=== PATIENT | female | born 1995 | race Caucasian/White ===

== ENCOUNTER 2016-10-10 00:21 | Emergency (ER) | payer SELFPAY ==
[2016-10-10 03:06] VITALS: BP 121/78
== END 2016-10-10 03:07 | disposition home or self-care (01) ==
LOC: EME 00:21
DX: S00.83XA Contusion of other part of head, initial encounter (principal); Y04.0XXA Assault by unarmed brawl or fight, initial encounter; Y92.29 Other specified public building as the place of occurrence of the external cause
CPT/HCPCS: 70450; 70486; 99281; 99284